=== PATIENT | male | born 1990 ===

== ENCOUNTER 2023-01-28 10:30 | Outpatient (REF) | payer OTHER, SELFPAY | END 2023-01-28 10:31 | disposition home or self-care (01) | LOC: HO.LAB 10:30 | PROVIDERS: Visit Provider Family Medicine | DX: Z13.89 Encounter for screening for other disorder (principal) ==

== ENCOUNTER 2023-04-09 10:50 | Outpatient (AMB) | payer OTHER, SELFPAY ==
[2023-04-09 10:58] VITALS: BP 122/68; PULSE 84; RESP 12; TEMP 37.1; O2SAT 99; BMI 31.3
--- NOTE | 2023-04-09 10:58 | MHC.PC.OV ---
Vital Signs 04/09/23 10:58 Height 5 ft 10 in Weight 218 lb 4 oz BMI 31.3 BP 122/68 Blood Pressure Location Lt brachial Position Sitting Respiration 12 Pulse 84 Pulse Source Pulse Oximeter Temp 98.7 F Temp Source Temporal Artery Scan Pulse Oximetry (%) 99 Oxygen Delivery Method Room Air Intake Visit Reasons: CPE with f/u labs and health maintenance Intake Note: Labs weren't done and will be getting done on Thursday. Patient states that hes had numkbness in his legs mostly the right one. Patient states that he also has bumps that have been coming up on his legs that feel hard. Bus Escort Required: No Accompanied by: Self / Same As Patient Allergies No Known Allergies Allergy (Verified 04/09/23 11:04) Tobacco use date assessed: 04/09/23 Dental Screening Dental Screen Date: 04/09/23 Did you have a dental visit in the last 12 months?: No Did you have a dental problem in the last 6 months where you did not have access to dental care?: No Was dental information given to patient?: Yes HPI CPE with f/u labs and health maintenance HPI Details 32 y/o male presents for a CPE with f/u labs and health maintenance. No recent labs to review. He reports working on his water in [employer] and metamucil has helped his abdominal discomfort. He reports significant heartburn daily. He has been using tums for relief. [facility] Medical History (Updated 04/09/23 @ 11:43 by Sihraz Felix) No pertinent past medical history Surgical History (Updated 04/09/23 @ 11:09 by Sarita Crystal MA) No pertinent past surgical history Family History Father Hypertension Brother Substance abuse Social History Household Members: Family Housing: House Are you a primary certified caregiver to a significant other at home: No Do you presently have visiting nurse or other home services: No 75 years or older and lives alone: No Alcohol intake: former Patient Tobacco Use Status: Former Tobacco user Years Smoked: every once in a while. 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 Cognitive needs: No Hearing needs: No Vision needs: No Review of Systems Const Denies chills, Denies fatigue, Denies fever(s), Denies headache(s) and Denies weakness Eyes Denies change in vision ENT Denies dizziness, Denies headache(s), Denies hearing loss, Denies nasal congestion, Denies sinus pain, Denies sinus pressure and Denies sore throat Card Denies chest pain, Denies lightheadedness, Denies dyspnea and Denies other (palpitations) Resp Denies cough, Denies dyspnea and Denies wheezing GI Denies abdominal pain, Denies melena, Denies hematochezia, Denies change in bowel habits, Denies dyspepsia and Denies nausea Denies hematuria and Denies dysuria Musc Denies abnormal gait, Denies myalgias, Denies arthralgias, Denies numbness and Denies tingling Skin/Breast Denies rash, Denies unusual bruising and Denies wounds Neuro Denies abnormal gait, Denies dizziness, Denies headache(s), Denies memory loss, Denies numbness, Denies Sensory deficit (Neuro), Denies tingling and Denies weakness Psych Denies anxiety, Denies depression and Denies memory loss Endo Denies cold intolerance, Denies fatigue, Denies heat intolerance, Denies polydipsia and Denies polyuria Sherif/Lymph Denies easy bleeding and Denies easy bruising Aller/Immun Denies wheezing Physical exam (Primary Care) Vital Signs: Last Vital Signs Temp 98.7 F 04/09/23 10:58 Pulse 84 04/09/23 10:58 Resp 12 04/09/23 10:58 BP 122/68 04/09/23 10:58 Pulse Ox 99 04/09/23 10:58 Oxygen Delivery Method Room Air 04/09/23 10:58 BMI result Body Mass Index 31.3 Tobacco/Smoking Status: Tobacco use Status Tobacco use date assessed 04/09/23 04/09/23 11:09 Patient Tobacco Use Status Former Tobacco user 04/09/23 11:09 Tobacco use type 04/09/23 11:09 e-Cigarette/Vaping Use Never Used 04/09/23 11:09 Const General: no acute distress, well developed, alert and awake Nutritional Appearance: well nourished Orientation/consciousness: patient oriented x3 HENMT Head: Yes normocephalic and Yes atraumatic Ears: hearing grossly normal bilaterally and TM's normal bilaterally General nose exam: Normal external nose present and Normal nares present Mouth: Normal oral and palatal mucosa present and moist mucous membranes Teeth and gingiva: dentition normal Throat: Yes posterior oropharynx normal Eyes General: appearance normal, both eyes and all related structures Pupils: Equal, round and reactive pupils present and Pupil accommodation reflex normal EOM: EOMs intact bilaterally Neck Neck: Yes normal visual inspection, Yes no lymphadenopathy and Yes trachea midline Thyroid: Thyroid normal Carotids: no bruits Lymphatic: no lymphadenopathy noted Chest Chest palpation & inspection: normal inspection of the chest Resp Effort & Inspection: normal respiratory effort Auscultation: clear to auscultation bilaterally Cardio Rate: regular rate Rhythm: regular rhythm Heart sounds: S1 normal heart sound present, S2 normal heart sound present, no gallops, no murmurs and no rubs Bruits: no abdominal aortic bruits and no carotid bruits GI Palpation (GI): No Abdominal aortic bruit present, Soft to palpation, nontender, No hepatosplenomegaly present and No Rebound tenderness present Auscultation: normal bowel sounds General: Yes no CVA tenderness Back/Spine/Pelvis Back: no CVA tenderness Cervical Spine: cervical ROM normal and No Cervical spine tenderness Thoracic/Lumbar Spine: thoraco-lumbar ROM normal, No pain with thoraco-lumbar ROM, No thoracic spinal tenderness and No lumbar spinal tenderness Skin Lesions: no lesions Rashes: no rashes Trauma: no lacerations or abrasions Wounds: no wounds Nails: normal Neuro General: patient oriented x3 Cranial nerves: Yes Equal, round and reactive pupils present Cognition (Neuro): normal cognition Gait exam (Neuro): Normal gait present Motor exam (neuro): 5/5 motor strength present throughout Sensory Exam: No Sensory deficit (Neuro) Deep tendon reflexes (DTR's): Right patellar reflex intensity grade: 2+ and Left patellar reflex intensity grade: 2+ Extrem General: Yes normal to inspection and No edema Psych Appearance: grossly normal Affect: normal affect Attitude: cooperative Thought process: Normal thought process present Assessment and Plan Assessment & Plan (1) Adult general medical exam: Code(s): Z00.00 - Encounter for general adult medical examination without abnormal findings (2) Abdominal pain: Code(s): R10.9 - Unspecified abdominal pain Plan: Improving with increased hydration and soluble fiber Continue this (3) GERD (gastroesophageal reflux disease): Code(s): K21.9 - Gastro-esophageal reflux disease without esophagitis Plan: GERD with symptoms every day Trial omeprazole He will let me know if this persists; would refer to GI Medications: New omeprazole 20 mg PO DAILY 30 days 30 caps 3RF Coding Level of Care Code Est Pt Level 3 (24934) Est Pt Prev Care 18-39y(24222) Diagnoses Adult general medical exam Z00.00 Abdominal pain R10.9 GERD (gastroesophageal reflux disease) K21.9
== END 2023-04-09 11:45 | disposition home or self-care (01) ==
PROVIDERS: Visit Provider Family Medicine
DX: Z00.00 Encounter for general adult medical examination without abnormal findings (principal); R10.9 Unspecified abdominal pain; K21.9 Gastro-esophageal reflux disease without esophagitis
CPT/HCPCS: 99395

== ENCOUNTER 2023-04-13 08:43 | Outpatient (REF) | payer OTHER, SELFPAY ==
[2023-04-13 11:47] LABS: Appearance Urine Clear; Color Urine Yellow; Glucose Urine UA Negative (Negative); Leukocyte Esterase Urine Trace (Negative); Nitrite Urine Negative (Negative); PH 5.5 (5.0-9.0); UMIC TRIGGER UA YES; Urine Blood Negative (Negative); Urine Ketones Negative (Negative); Urine Protein Negative (Neg-Trace)
[2023-04-13 12:02] LABS: Bacteria Urine None Seen (None Seen); Hyaline Casts Urine 0-2 /LPF (0-2); RBC Urine 0-2 /HPF (0-2); Squamous Epithelial Cell Urine 0-2 /HPF (0-2)
[2023-04-13 12:06] LABS: Alanine Aminotransferase 16 U/L (0-40); Albumin Level 4.3 g/dL (3.5-5.0); Alkaline Phosphatase 48 U/L (39-117); Anion Gap 10 (12-20); Aspartate Amino Transferase 16 U/L (5-37); Bilirubin Total 0.4 mg/dL (0.0-1.0); Blood Urea Nitrogen 15 mg/dL (9-16); Calcium 9.5 mg/dL (8.4-10.2); Carbon Dioxide 27 mmol/L (22-29); Chloride 107 mmol/L (96-108); Cholesterol 188 mg/dL; Estimated Glomerular Filt Rate > 60; Glucose Fasting 104 mg/dL (60-99); HDL Cholesterol 57 mg/dL; LDL Cholesterol Calculated 119 mg/dl; Potassium 4.3 mmol/L (3.3-5.1); Sodium 140 mmol/L (135-145); Triglycerides 63 mg/dL
[2023-04-13 12:11] LABS: Syphilis Screen Nonreactive (Nonreactive)
[2023-04-13 12:17] LABS: HBS Num1 1.48 mIU/mL (0-7.99); HBc Num1 0.12 S/CO (0.00-0.79); HBsAGNum1 0.34 S/CO (0.00-0.99); HIV AB/AG Nonreactive (Nonreactive); HIV Num 1 0.05 S/CO (0.00-0.99); Hepatitis B Core Antibody Nonreactive (Nonreactive); Hepatitis B Surface Antigen Negative (Negative); ~HepC Num1 0.07 S/CO (0.00-0.79); ~Hepatitis B Surface Antibody NONREACTIVE (Nonreactive); ~Hepatitis C Antibody Nonreactive (Nonreactive)
[2023-04-13 12:48] LABS: Creatinine Urine 150.57 mg/dL; Microalbum/Creatinine Ratio Ur 3.9 ug/mg cr
[2023-04-13 13:48] LABS: CT PCR NOT DETECTED (Not Detect.); NG PCR NOT DETECTED (Not Detect.)
== END 2023-04-13 08:44 | disposition home or self-care (01) ==
LOC: HO.WFDLDS 08:43
PROVIDERS: Visit Provider Family Medicine
DX: Z00.00 Encounter for general adult medical examination without abnormal findings (principal); Z11.4 Encounter for screening for human immunodeficiency virus [HIV]; I10 Essential (primary) hypertension; Z20.2 Contact with and (suspected) exposure to infections with a predominantly sexual mode of transmission
CPT/HCPCS: 0353U; 80053; 80061; 81001; 82043; 84443; 86704; 86706; 86780; 86803; 87340; 87389

== ENCOUNTER 2023-05-06 16:36 | Outpatient (AMB) | payer OTHER, SELFPAY ==
--- NOTE | 2023-05-06 14:08 | A.OFFPC_ITS ---
Intake Visit Reasons: f/u CPE-labs Intake Note: Patient is following up on lab results today. Allergies No Known Allergies Allergy (Verified 05/06/23 14:08) Tobacco use date assessed: 05/06/23 Dental Screening Dental Screen Date: 05/06/23 Did you have a dental visit in the last 12 months?: No Did you have a dental problem in the last 6 months where you did not have access to dental care?: No Was dental information given to patient?: No HPI f/u CPE-labs HPI Details 32 y/o male presents to f/u CPE-labs via telemedicine. Labs were drawn 04/13/23. Reviewed labs with pt. Triglycerides 63. TC 188. LDL 119. HDL 57. Elevated fasting glucose of 104. Pt reports family history of diabetes - his mother. [facility] Medical History (Updated 05/06/23 @ 17:24 by Shiraz Felix) No pertinent past medical history Surgical History (Updated 04/09/23 @ 11:09 by Sarita Crystal MA) No pertinent past surgical history Family History Father Hypertension Brother Substance abuse Social History Household Members: Family Housing: House Are you a primary hospice home care coordinator to a significant other at home: No Do you presently have visiting nurse or other home services: No 75 years or older and lives alone: No Alcohol intake: former Patient Tobacco Use Status: Former Tobacco user Years Smoked: every once in a while. 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 Cognitive needs: No Hearing needs: No Vision needs: No Review of Systems Const Denies chills, Denies fatigue, Denies fever(s), Denies headache(s) and Denies weakness ENT Denies dizziness and Denies headache(s) Card Denies dyspnea Resp Denies cough, Denies dyspnea, Denies wheezing and Denies other (shortness of breath) Musc Denies numbness and Denies tingling Neuro Denies dizziness, Denies headache(s), Denies numbness, Denies tingling and Denies weakness Psych Denies anxiety and Denies depression Endo Denies fatigue Aller/Immun Denies wheezing Physical exam (Primary Care) Tobacco/Smoking Status: Tobacco use Status Tobacco use date assessed 05/06/23 05/06/23 14:11 Patient Tobacco Use Status Former Tobacco user 05/06/23 14:11 Tobacco use type 04/09/23 11:42 e-Cigarette/Vaping Use Never Used 05/06/23 14:11 Telehealth Telehealth Minutes spent on Phone/Video with Pt.: 6 Assessment and Plan Assessment & Plan (1) Elevated fasting glucose: Code(s): R73.01 - Impaired fasting glucose Plan: Reviewed labs with patient and fasting blood sugar is mildly elevated. He has a strong family history of diabetes Encouraged a diet lower in sugars and starches He will get his blood redrawn fasting prior to his next visit and we will review this as well as check an A1c Orders: Orders Comprehensive Convoy. Panel Fast Today R73.01 - Impaired fasting glucose, Z00.00 - Encounter for general adult medical examination without abnormal findings Medications: Refilled omeprazole 20 mg PO DAILY 30 caps 3RF 30 days Coding Level of Care Code Tele Est Pt Level 2 (91478) Diagnoses Elevated fasting glucose R73.01
== END 2023-05-06 17:00 ==
PROVIDERS: PCP Family Medicine; Visit Provider Family Medicine
DX: R73.01 Impaired fasting glucose (principal)
CPT/HCPCS: 99212

== ENCOUNTER 2023-08-04 15:18 | Outpatient (AMB) | payer OTHER, SELFPAY ==
--- NOTE | 2023-08-04 15:28 | A.OFFPC_ITS ---
Vital Signs 08/04/23 15:30 Height 5 ft 10 in Weight 214 lb 2 oz BMI 30.7 BP 118/74 Blood Pressure Location Lt brachial Position Sitting Pulse 75 Pulse Source Pulse Oximeter Pulse Oximetry (%) 97 Oxygen Delivery Method Room Air Intake Visit Reasons: f/u elevated fasting glucose Intake Note: Patient is here following up on elevated fasting blood glucose. Allergies No Known Allergies Allergy (Verified 08/04/23 15:34) Tobacco use date assessed: 08/04/23 HPI f/u elevated fasting glucose HPI Details 32 y/o male presents to f/u elevated fas ting blood sugars. A1c today 08/04/23 is 5.6%. Pt does report increased thirst recently but denies any other symptoms. Pt reports bumps bilateral legs. He notes he has stopped using omeprazole about a month ago as he was worried about nursing home use of omeprazole. He does note that it has been controlling his heartburn and has started taking it again about 2 weeks ago. He reports abd. pain. [facility] Medical History No pertinent past medical history Surgical History No pertinent past surgical history Family History Father Hypertension Brother Substance abuse Social History Household Members: Family Housing: House Are you a primary career technology teacher to a significant other at home: No Do you presently have visiting nurse or other home services: No 75 years or older and lives alone: No Alcohol intake: former Patient Tobacco Use Status: Former Tobacco user Years Smoked: every once in a while. e-Cigarette/Vaping Use: Never Used service: No Current occupational status: employed Current occupation: [employer] Cognitive needs: No Hearing needs: No Vision needs: No Review of Systems Const Denies chills, Denies fatigue, Denies fever(s), Denies headache(s) and Denies weakness ENT Denies dizziness and Denies headache(s) Card Denies dyspnea Resp Denies cough, Denies dyspnea, Denies wheezing and Denies other (shortness of breath) GI Reports abdominal pain Musc Denies numbness and Denies tingling Neuro Denies dizziness, Denies headache(s), Denies numbness, Denies tingling and Denies weakness Psych Denies anxiety and Denies depression Endo Denies fatigue Aller/Immun Denies wheezing Physical exam (Primary Care) Vital Signs: Last Vital Signs Pulse 75 08/04/23 15:30 BP 118/74 08/04/23 15:30 Pulse Ox 97 08/04/23 15:30 Oxygen Delivery Method Room Air 08/04/23 15:30 BMI result Body Mass Index 30.7 Tobacco/Smoking Status: Tobacco use Status Tobacco use date assessed 08/04/23 08/04/23 15:35 Patient Tobacco Use Status Former Tobacco user 08/04/23 15:30 Tobacco use type 04/09/23 11:42 e-Cigarette/Vaping Use Never Used 08/04/23 15:30 Const General: well developed; No acute distress Nutritional Appearance: well nourished Orientation/consciousness: patient oriented x3 HENMT Head: Yes normocephalic and Yes atraumatic Eyes General: appearance normal, both eyes and all related structures Pupils: Equal, round and reactive pupils present EOM: EOMs intact bilaterally Resp Effort & Inspection: normal respiratory effort Neuro General: patient oriented x3 and gait normal Cranial nerves: Yes Equal, round and reactive pupils present Psych Affect: normal affect Office Procedures Flu Questionnaire Does the patient have a severe egg allergy?: Yes Does the patient have severe life threatening allergies?: Yes Does the patient have a fever or illness today?: Yes 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 Has the patient ever had any past reaction to a flu shot?: Yes Results AMB Hemoglobin A1c AMB Hemoglobin A1c 5.6 % Last Edit by Karlee Nice CMA on 08/04/23 15:52 Immunizations flu vacc [id number] 6mos up(PF) 60 mcg(15 mcgx4)/0.5 mL IM syringe Performing Provider: Bola Hernandez MD Performing Location: [facility] Documented (not given) by: Karlee Nice CMA on 08/04/23 15:39 Reason Not Given: Patient Refused Results Reviewed Results Reviewed: Laboratory Last Values Hgb A1c (Clinic) 5.6 % (4.0-6.0) 08/04/23 15:51 Assessment and Plan Assessment & Plan (1) Elevated fasting glucose: Code(s): R73.01 - Impaired fasting glucose Plan: A1c?5.6%.??Insulin?resistance Encouraged?diet?low?in?sugars?and?starches Encouraged?weight?control?and?exercise (2) GERD (gastroesophageal reflux disease): Code(s): K21.9 - Gastro-esophageal reflux disease without esophagitis Plan: Ongoing?GERD Refilled?omeprazole Referred?to?GI (3) Abdominal pain: Code(s): R10.9 - Unspecified abdominal pain Plan: As?above,?referred?to?GI (4) Ingrown hair: Code(s): L73.1 - Pseudofolliculitis barbae Plan: Folliculitis,?ingrown?hair?and?mild?abscess Start?Bactrim Patient?shaves?and?advised?him?to?try?clippers?instead?or?discontinue?shaving Can?also?use?Hibiclens Orders: Orders Influenza [id number] Immunization Today Z23 - Encounter for immunization AMB Hemoglobin A1c Today Z13.9 - Encounter for screening, unspecified Medications: New sulfamethoxazole-trimethoprim 800-160 mg (Bactrim DS) 1 tab PO Q12H 20 tabs 0RF 10 days Refilled omeprazole 20 mg PO DAILY 30 caps 3RF 30 days Coding Level of Care Code Est Pt Level 4 (68380) Diagnoses Elevated fasting glucose R73.01 GERD (gastroesophageal reflux disease) K21.9 Abdominal pain R10.9 Ingrown hair L73.1
[2023-08-04 15:30] VITALS: BP 118/74; PULSE 75; O2SAT 97; BMI 30.7
== END 2023-08-04 16:17 | disposition home or self-care (01) ==
PROVIDERS: PCP Family Medicine; Visit Provider Family Medicine
DX: R73.01 Impaired fasting glucose (principal); K21.9 Gastro-esophageal reflux disease without esophagitis; R10.9 Unspecified abdominal pain; L73.1 Pseudofolliculitis barbae; Z23 Encounter for immunization
CPT/HCPCS: 83036; 99214

== ENCOUNTER 2023-11-03 15:25 | Outpatient (AMB) | payer OTHER, SELFPAY ==
--- NOTE | 2023-11-03 15:45 | A.OFFPC_ITS ---
Vital Signs 11/03/23 15:49 Height 5 ft 10 in Weight 214 lb BMI 30.7 BP 121/80 Blood Pressure Location Lt brachial Position Sitting Pulse 77 Pulse Source Pulse Oximeter Pulse Oximetry (%) 97 Oxygen Delivery Method Room Air Intake Visit Reasons: f/u elevated fasting blood sugars. Intake Note: Patient is here to follow up on elevated fasting blood sugars, and he is requesting HPV testing today. Allergies No Known Allergies Allergy (Verified 11/03/23 15:47) Tobacco use date assessed: 11/03/23 HPI f/u elevated fasting blood sugars. HPI Details 32 y/o male presents to f/u elevated fas ting blood sugars. Last A1c 08/04/23 5.6%. A1c today 11/03/23 is 5.6%. Pt reports winifred has HPV. [facility] Medical History No pertinent past medical history Surgical History No pertinent past surgical history Family History Father Hypertension Brother Substance abuse Social History (Updated 11/03/23 @ 15:49 by Karlee Nice CMA) Household Members: Family Housing: House Are you a primary healthcare risk control consultant to a significant other at home: No Do you presently have visiting nurse or other home services: No 75 years or older and lives alone: No Alcohol intake: former Patient Tobacco Use Status: Former Tobacco user Years Smoked: every once in a while. 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 Cognitive needs: No Hearing needs: No Vision needs: No Review of Systems Const Denies chills, Denies fatigue, Denies fever(s), Denies headache(s) and Denies weakness ENT Denies dizziness and Denies headache(s) Card Denies dyspnea Resp Denies cough, Denies dyspnea, Denies wheezing and Denies other (shortness of breath) Musc Denies numbness and Denies tingling Neuro Denies dizziness, Denies headache(s), Denies numbness, Denies tingling and Denies weakness Psych Denies anxiety and Denies depression Endo Denies fatigue Aller/Immun Denies wheezing Physical exam (Primary Care) Vital Signs: Last Vital Signs Pulse 77 11/03/23 15:49 BP 121/80 11/03/23 15:49 Pulse Ox 97 11/03/23 15:49 Oxygen Delivery Method Room Air 11/03/23 15:49 BMI result Body Mass Index 30.7 Tobacco/Smoking Status: Tobacco use Status Tobacco use date assessed 11/03/23 11/03/23 15:57 Patient Tobacco Use Status Former Tobacco user 11/03/23 15:57 Tobacco use type 04/09/23 11:42 e-Cigarette/Vaping Use Never Used 11/03/23 15:57 Const General: well developed; No acute distress Nutritional Appearance: well nourished Orientation/consciousness: patient oriented x3 HENMT Head: Yes normocephalic and Yes atraumatic Eyes General: appearance normal, both eyes and all related structures Pupils: Equal, round and reactive pupils present EOM: EOMs intact bilaterally Resp Effort & Inspection: normal respiratory effort Neuro General: patient oriented x3 and gait normal Cranial nerves: Yes Equal, round and reactive pupils present Psych Affect: normal affect Results AMB Hemoglobin A1c AMB Hemoglobin A1c 5.6 % Last Edit by Karlee Nice CMA on 11/03/23 16:07 Results Reviewed Results Reviewed: Laboratory Last Values Hgb A1c (Clinic) 5.6 % (4.0-6.0) 11/03/23 16:06 Assessment and Plan Assessment & Plan (1) Elevated fasting glucose: Code(s): R73.01 - Impaired fasting glucose Plan: A1c?again?5.6%?which?is?top?normal?range Encouraged?diet?low?in?sugars?and?starches,?decrease?portion?sizes?and?work?at?w eight?loss.??Encouraged?exercise. Will?continue?to?follow (2) HPV exposure: Code(s): Z20.2 - Contact with and (suspected) exposure to infections with a predominantly sexual mode of transmission Plan: Fiancee?had?Pap?smear?and?tested?positive?for?HPV Discussed?HPV?transmission?and explained?to?patient?that?there?is?no?HPV?testing?for?males However,?if?positive?for?HPV?he?can?also?be?tested?for?other?STDs.??See?below (3) Screening for STD (sexually transmitted disease): Code(s): Z11.3 - Encounter for screening for infections with a predominantly sexual mode of transmission Plan: Patient?would?like?testing?for?STD/STI No?symptoms He?will?come?in?tomorrow?to?get?labs?acquired?and?we?can?follow- up?in?a?few?weeks. Will?call?patient?if?action?is?required?sooner. Orders: Orders CT NG by PCR Today Z11.3 - Encounter for screening for infections with a predominantly sexual mode of transmission AMB Hemoglobin A1c Today Z13.9 - Encounter for screening, unspecified HIV Ab/Ag Today Z11.3 - Encounter for screening for infections with a predominantly sexual mode of transmission Hepatitis B,C Profile Today Z11.3 - Encounter for screening for infections with a predominantly sexual mode of transmission Syphilis Screen Today Z11.3 - Encounter for screening for infections with a predominantly sexual mode of transmission Coding Level of Care Code Est Pt Level 3 (31883) Diagnoses Elevated fasting glucose R73.01 HPV exposure Z20.2 Screening for STD (sexually transmitted disease) Z11.3
[2023-11-03 15:49] VITALS: BP 121/80; PULSE 77; O2SAT 97; BMI 30.7
== END 2023-11-04 11:49 | disposition home or self-care (01) ==
PROVIDERS: PCP Family Medicine; Visit Provider Family Medicine
DX: R73.01 Impaired fasting glucose (principal); Z20.2 Contact with and (suspected) exposure to infections with a predominantly sexual mode of transmission; Z11.3 Encounter for screening for infections with a predominantly sexual mode of transmission
CPT/HCPCS: 83036; 99213

== ENCOUNTER 2023-11-04 08:48 | Outpatient (REF) | payer OTHER, SELFPAY ==
[2023-11-05 03:48] LABS: Syphilis Screen Nonreactive (Nonreactive)
[2023-11-05 04:06] LABS: HBS Num1 2.66 mIU/mL (0-7.99); HBc Num1 0.09 S/CO (0.00-0.79); HIV AB/AG Nonreactive (Nonreactive); HIV Num 1 0.05 S/CO (0.00-0.99); Hepatitis B Core Antibody Nonreactive (Nonreactive); Hepatitis B Surface Antigen Negative (Negative); ~HepC Num1 0.09 S/CO (0.00-0.79); ~Hepatitis B Surface Antibody NONREACTIVE (Nonreactive); ~Hepatitis C Antibody Nonreactive (Nonreactive)
== END 2023-11-04 08:49 | disposition home or self-care (01) ==
LOC: HO.WFDLDS 08:48
PROVIDERS: Visit Provider Family Medicine
DX: Z11.4 Encounter for screening for human immunodeficiency virus [HIV] (principal); Z20.2 Contact with and (suspected) exposure to infections with a predominantly sexual mode of transmission
CPT/HCPCS: 36415; 86704; 86706; 86780; 86803; 87340; 87389

== ENCOUNTER 2024-05-10 17:32 | Emergency (ER) | payer OTHER, SELFPAY ==
[2024-05-10 17:36] VITALS: BP 135/82; PULSE 82; RESP 18; TEMP 36.2; O2SAT 98; BMI 28.7
--- NOTE | 2024-05-10 17:37 | ED_ITS ---
HPI - General Adult General Chief complaint: General Medical Stated complaint: not feeling well/nauseous Time Seen by Provider: 05/11/24 05:45 Source: patient Mode of arrival: ambulatory Limitations: no limitations History of Present Illness ED Provider: Dr. Gualberto Borrero HPI narrative: 33-year-old male with a history of GERD who presents emergency department for evaluation of headache, nausea, vomiting, lightheadedness, dizziness and abdominal pain. Patient states that yesterday he was trimming the bushes for about an hour. When he finished he went inside and had a headache which she describes as a diffuse, throbbing sensation which was moderate in intensity. He felt lightheaded and dizzy if his he was going to pass out. He also states that he had epigastric pain. He has had similar epigastric pain in the past and attributes it to his acid reflux/heartburn. Patient states that he was prescribed Prilosec but he has only taken a few doses and he states that it is not been effective at controlling his heartburn. Patient was concerned about his heartburn symptoms so came to the emergency department for evaluation. Related Data Previous Rx's ?Medication ?Instructions ?Recorded psyllium husk 0.4 gram capsule 0.4 g PO DAILY PRN constipation 30 01/21/23 (Metamucil) days #30 caps omeprazole 20 mg capsule,delayed 20 mg PO DAILY 30 days #30 caps 08/04/23 release sulfamethoxazole 800 1 tab PO Q12H 10 days #20 tabs 08/04/23 mg-trimethoprim 160 mg tablet (Bactrim DS) aluminum hydrox-magnesium carb 254 10 ml PO QID PRN dyspepsia #355 mL 05/11/24 mg-237.5 mg/5 mL oral suspension (Gaviscon Extra Strength) Allergies Allergy/AdvReac Type Severity Reaction Status Date / Time No Known Allergies Allergy Verified 05/10/24 17:38 Review of Systems 2 Review of Systems: Yes all other systems are reviewed and are negative [facility] Past Medical History [facility] Narrative: Social history: He denies tobacco and alcohol use. He does smoke marijuana. Medical History No pertinent past medical history Surgical History No pertinent past surgical history Family History Family History Father Hypertension Brother Substance abuse Social History Social History (Updated 11/03/23 @ 15:49 by Karlee Nice CMA) Household Members: Family Housing: House Are you a primary lawn care technician to a significant other at home: No Do you presently have visiting nurse or other home services: No Alcohol intake: former Patient Tobacco Use Status: Former Tobacco user Years Smoked: every once in a while. e-Cigarette/Vaping Use: Never Used Substance Use Type: Marijuana Advance Directives: No Advance Directives Information Provided: No Do you have a plan to hurt others: No Plan service: No Current occupational status: employed Current occupation: [employer] Cognitive needs: No Hearing needs: No Vision needs: No Physical Exam ED Vital Signs: Vital Signs - 24 hr 05/10/24 17:36 05/10/24 22:51 05/11/24 02:55 Temperature 97.1 F 97.7 F 98.0 F Pulse Rate 82 72 72 Respiratory Rate 18 17 17 Blood Pressure 135/82 150/98 H 139/87 Pulse Oximetry 98 99 99 Oxygen Delivery Method Room Air Room Air Room Air 05/11/24 05:44 05/11/24 06:11 Temperature 97.1 F 97.1 F Pulse Rate 69 69 Respiratory Rate 17 17 Blood Pressure 136/86 136/86 Pulse Oximetry 98 98 Oxygen Delivery Method Room Air Room Air BMI result Body Mass Index 28.7 Vital signs were normal Exam: General: Awake, alert in no distress Head: Normocephalic, atraumatic EENT: PERRL, Lids normal, sclera normal, conjunctiva normal, nose normal , ears normal, throat without erythema or exudates Neck: Supple, no adenopathy Lung: breath sounds symmetric, no wheezing, rales or rhonchi Chest: symmetric movement, nontender Heart: regular rate and rhythm, normal S1, S2 no murmurs or rubs Abdomen: soft, moderate epigastric tenderness,, nondistended, normal bowel sounds Back: no vertebral tenderness, no CVAT Extremities: no deformities, moves all extremities symmetrically Neuro: Awake, alert, oriented, normal speech, cranial nerves intact, moves all extremities symmetrically Psych: Pleasant, cooperative Course Course Course Narrative: RME, this is a rapid medical exam performed by David Cr please refer to primary provider for complete H&P- 33-year-old male presents for evaluation of headache, nausea, sore throat, abdominal pain. Patient reports abdominal pain on and off for a few months but headache started about 30 minutes prior to arrival. Medical Decision Making Medical Decision Making [facility] Narrative: 33-year-old male with a history of GERD who presents emergency department for evaluation of headache, nausea, vomiting, lightheadedness, dizziness with symptoms starting yesterday after he was trimming his pushes for proximally 1 hour. Patient has also been complaining of increased epigastric and heartburn symptoms. Vital signs were normal. Physical examination did reveal epigastric tenderness otherwise was unremarkable. Differential diagnosis: ?Includes but is not limited to gastritis, peptic ulcer disease, gastric ulcer, anemia, electrolyte abnormality Following evaluation was ordered: CBC, CMP, lipase, urinalysis Course: My independent interpretation patient's laboratory evaluation is as follows: CBC was normal. Glucose was elevated 175. LFTs were normal. Lipase was normal. COVID-19 was negative. The patient's symptoms are most consistent with gastritis and I did discuss this with him. Patient was advised to take his Prilosec 20 mg once a day for 4-6 weeks and to follow up with his PCP. He was also given a prescription for extra-strength Gaviscon 4 times a day as needed for heartburn like pain. Patient does have an elevated glucose of 175 and I did add a hemoglobin A1c. I told him it is important to follow up with his PCP and check his hemoglobin A1c result. I did discuss diabetes versus prediabetes with the patient and the importance of follow-up evaluation. Please note that the patient requires a paper prescription for extra-strength Gaviscon since he was not sure which pharmacy he wanted to use. I did print up the prescription and signed it however the patient forgot to take the prescription with him. Admission/Observation Consideration of admission/observation: Escalation of care including admission/observation considered Lab Data [facility] Lab Attestation statement: I reviewed the patient's lab results. 05/10/24 17:53 05/10/24 17:53 Labs: Lab Results 05/10/24 05/11/24 Range/Units 17:53 02:59 WBC 8.2 (4.8-10.8) X10*3/uL RBC 5.05 (4.60-5.80) X10*6/uL Hgb 15.1 (14.0-18.0) g/dl Hct 43.4 (42.0-52.0) % MCV 85.9 (80.0-98.0) fL MCH 29.9 (27.0-33.0) pg MCHC 34.8 (31.0-36.0) g/dl RDW 13.7 (11.0-16.0) % Plt Count 222 (160-400) X10*3/uL MPV 9.1 L (9.4-12.4) fL Immature Gran % (Auto) 0.2 (0.0-0.4) % Neut % (Auto) 51.2 (45-73) % Lymph % (Auto) 38.7 (20-40) % [place] % (Auto) 7.1 (2-11) % Eos % (Auto) 2.4 (0-4) % Baso % (Auto) 0.4 (0-2) % Lymph # (Auto) 3.2 (1.2-4.9) X10*3/uL [place] # (Auto) 0.6 (0.1-1.2) X10*3/uL Eos # (Auto) 0.2 (0.0-0.4) X10*3/uL Baso # (Auto) 0.0 (0.0-0.2) X10*3/uL Abs Immat Gran (auto) 0.02 (0.00-0.03) X10*3/uL Absolute Neuts (auto) 4.2 (2.0-8.3) x10*3/uL Absolute Nucleated RBC 0.000 (0.0-0.012) X10*3/uL Nucleated RBC % (auto) 0.0 (0.0-0.2) /100WBC Sodium 139 (135-145) mmol/L Potassium 3.3 (3.3-5.1) mmol/L Chloride 104 (96-108) mmol/L Carbon Dioxide 25 (22-29) mmol/L Anion Gap 13 (12-20) BUN 17 H (9-16) mg/dL Creatinine 1.01 (0.5-1.4) mg/dL Estim Creat Clear Calc 116.7 Estimated GFR > 60 Random Glucose 175 H (60-115) mg/dL Calcium 10.0 (8.4-10.2) mg/dL Total Bilirubin 0.3 (0.0-1.0) mg/dL AST 17 (5-37) U/L ALT 16 (0-40) U/L Alkaline Phosphatase 52 (39-117) U/L Total Protein 7.2 (6.5-8.0) g/dL Albumin 4.5 (3.5-5.0) g/dL Lipase 31 (8-78) U/L Urine Color Yellow Urine Appearance Clear Urine pH 6.0 (5.0-9.0) Ur Specific [place] 1.020 (1.005-1.025) Urine Protein Negative (Neg-Trace) mg/dL Urine Glucose (UA) Negative (Negative) mg/dL Urine Ketones Trace (Negative) mg/dL Urine Blood Negative (Negative) Urine Nitrite Negative (Negative) Ur Leukocyte Esterase Small (1+) H (Negative) Urine RBC 0-2 (0-2) /HPF Urine WBC 11-20 H (0-5) /HPF Ur Squamous Epith Cells 3-5 (0-2) /HPF Urine Bacteria Trace (None Seen) Hyaline Casts 0-2 (0-2) /LPF COVID-19 ([facility]) Negative (Negative) COVID-19 Clin Com See Note Prescription Management I considered prescription management with: Other (Antacids) Discharge Plan Discharge Clinical Impression: Gastritis, Dizziness, Headache Patient Disposition: Home, Self-Care Instructions: Gastritis (ED) Additional Instructions: Your blood work was normal which is reassuring. Your stomach pain is consistent with too much acid in your stomach causing inflammation in his stomach (gastritis) Take take your omeprazole 20 mg pills, 1 pill once a day for 1 month. ?This medication shuts off your acid production and lets the inflammation in your stomach and esophagus heal. You have to take omeprazole for at least 4-6 weeks in order for your stomach to heal. Take extra-strength Gaviscon 10 mL (2 tsp) 4 times a day as needed for abdominal pain. Follow-up with your doctor in 2 days. Please return to the emergency department if your symptoms get worse or if you develop any symptoms that are concerning to you. Please see the work note Prescriptions: New Gaviscon Extra Strength 254-237.5 mg/5 mL suspension 10 ml PO QID PRN (Reason: dyspepsia) Qty: 355 0RF No Action psyllium husk [Metamucil] 0.4 gram capsule 0.4 g PO DAILY PRN (Reason: constipation) 30 Days Qty: 30 2RF sulfamethoxazole-trimethoprim [Bactrim DS] 800-160 mg tablet 1 tab PO Q12H 10 Days Qty: 20 0RF omeprazole 20 mg capsule,delayed release(DR/EC) 20 mg PO DAILY 30 Days Qty: 30 3RF Interventions: ED Discharge Assessment Last Done: 05/11/24 06:11 Discharge Date/Time: 05/11/24 06:13 Print Language: Bulgarian
[2024-05-10 18:02] LABS: MANUAL DIFF FLAG NO
[2024-05-10 18:03] LABS: Basophils Percent Auto 0.4 % (0-2); Eosinophils Absolute Auto 0.2 X10*3/uL (0.0-0.4); Eosinophils Percent Auto 2.4 % (0-4); Hematocrit 43.4 % (42.0-52.0); Hemoglobin 15.1 g/dl (14.0-18.0); Imm Gran Abs Auto 0.02 X10*3/uL (0.00-0.03); Imm Gran Pct Auto 0.2 % (0.0-0.4); Lymphocytes Absolute Auto 3.2 X10*3/uL (1.2-4.9); Lymphocytes Percent Auto 38.7 % (20-40); Mean Corpuscular HGB Conc 34.8 g/dl (31.0-36.0); Mean Corpuscular Hemoglobin 29.9 pg (27.0-33.0); Mean Corpuscular Volume 85.9 fL (80.0-98.0); Mean Platelet Volume 9.1 fL (9.4-12.4); Monocytes Absolute Auto 0.6 X10*3/uL (0.1-1.2); Monocytes Percent Auto 7.1 % (2-11); Neutrophils Absolute Auto 4.2 x10*3/uL (2.0-8.3); Neutrophils Percent Auto 51.2 % (45-73); Platelet Count 222 X10*3/uL (160-400); Red Blood Count 5.05 X10*6/uL (4.60-5.80); Red Cell Distribution Width 13.7 % (11.0-16.0); White Blood Count 8.2 X10*3/uL (4.8-10.8)
[2024-05-10 18:17] LABS: COVID-19 Test Negative (Negative); IDNOW Serial# 58CA691E
[2024-05-10 18:18] LABS: Alanine Aminotransferase 16 U/L (0-40); Albumin Level 4.5 g/dL (3.5-5.0); Alkaline Phosphatase 52 U/L (39-117); Anion Gap 13 (12-20); Aspartate Amino Transferase 17 U/L (5-37); Bilirubin Total 0.3 mg/dL (0.0-1.0); Blood Urea Nitrogen 17 mg/dL (9-16); Carbon Dioxide 25 mmol/L (22-29); Chloride 104 mmol/L (96-108); Creatinine Clr Calc Pharmacy 116.7; Estimated Glomerular Filt Rate > 60; Glucose Random 175 mg/dL (60-115); Lipase 31 U/L (8-78); Potassium 3.3 mmol/L (3.3-5.1); Sodium 139 mmol/L (135-145); Total Protein 7.2 g/dL (6.5-8.0)
[2024-05-10 22:51] VITALS: BP 150/98; PULSE 72; RESP 17; TEMP 36.5; O2SAT 99
[2024-05-11 02:55] VITALS: BP 139/87; PULSE 72; RESP 17; TEMP 36.7; O2SAT 99
[2024-05-11 03:10] LABS: Appearance Urine Clear; Color Urine Yellow; Glucose Urine UA Negative (Negative); Leukocyte Esterase Urine Small (1+) (Negative); Nitrite Urine Negative (Negative); UMIC TRIGGER UACC YES; Urine Blood Negative (Negative); Urine Ketones Trace mg/dL (Negative); Urine Protein Negative (Neg-Trace)
[2024-05-11 03:22] LABS: Bacteria Urine Trace (None Seen); Hyaline Casts Urine 0-2 /LPF (0-2); RBC Urine 0-2 /HPF (0-2); UACC Culture Trigger YES
[2024-05-11 05:44] VITALS: BP 136/86; PULSE 69; RESP 17; TEMP 36.2; O2SAT 98
[2024-05-11 06:11] VITALS: BP 136/86; PULSE 69; RESP 17; TEMP 36.2; O2SAT 98
[2024-05-11 09:34] LABS: Estimated Average Glucose 114 mg/dL; Hemoglobin A1C 148.9013 umol/L; Hemoglobin A1c % 5.6 % (<6.0)
== END 2024-05-11 06:13 | disposition home or self-care (01) ==
PROVIDERS: Physician Assistant; Emergency Provider Emergency Medicine Emergency Medical Services; PCP Family Medicine
DX: K29.70 Gastritis, unspecified, without bleeding (principal); R42 Dizziness and giddiness; R51.9 Headache, unspecified; R53.83 Other fatigue; R79.89 Other specified abnormal findings of blood chemistry; Z79.899 Other long term (current) drug therapy; Z11.52 Encounter for screening for COVID-19
CPT/HCPCS: 80053; 81001; 83036; 83690; 85025; 87086; 87635; 99283; 99284

== ENCOUNTER 2024-07-18 10:59 | Outpatient (AMB) | payer OTHER, SELFPAY ==
--- NOTE | 2024-07-18 12:00 | MHC.PC.OV ---
Vital Signs 07/18/24 12:04 Height 5 ft 10 in Weight 216 lb BMI 31.0 BP 137/77 Blood Pressure Location Rt brachial Position Sitting Respiration 14 Pulse 79 Pulse Source Pulse Oximeter Temp 99.0 F Temp Source Temporal Artery Scan Pulse Oximetry (%) 99 Oxygen Delivery Method Room Air Intake Visit Reasons: Nausea, fatigue Intake Note: pt feels a lump in his throat and is having genital itching and bump [id number] Allergies No Known Allergies Allergy (Verified 07/18/24 12:01) Tobacco use date assessed: 11/03/23 Dental Screening Dental Screen Date: 05/06/23 HPI Nausea, fatigue HPI Details 33 y/o male presents today with complaints of a lump in his throat. [facility] Medical History No pertinent past medical history Surgical History No pertinent past surgical history Family History Father Hypertension Brother Substance abuse Social History (Updated 11/03/23 @ 15:49 by Karlee Nice CMA) Household Members: Family Housing: House Are you a primary intensive care specialist to a significant other at home: No Do you presently have visiting nurse or other home services: No 75 years or older and lives alone: No Alcohol intake: former Patient Tobacco Use Status: Former Tobacco user Years Smoked: every once in a while. 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 Cognitive needs: No Hearing needs: No Vision needs: No Review of Systems Const Denies chills, Denies fatigue, Denies fever(s), Denies headache(s) and Denies weakness ENT Denies dizziness and Denies headache(s) Card Denies dyspnea Resp Denies cough, Denies dyspnea, Denies wheezing and Denies other (shortness of breath) Musc Denies numbness and Denies tingling Neuro Denies dizziness, Denies headache(s), Denies numbness, Denies tingling and Denies weakness Psych Denies anxiety and Denies depression Endo Denies fatigue Aller/Immun Denies wheezing Physical exam (Primary Care) Vital Signs: Last Vital Signs Temp 99.0 F 07/18/24 12:04 Pulse 79 07/18/24 12:04 Resp 14 07/18/24 12:04 BP 137/77 07/18/24 12:04 Pulse Ox 99 07/18/24 12:04 Oxygen Delivery Method Room Air 07/18/24 12:04 BMI result Body Mass Index 31.0 Tobacco/Smoking Status: Tobacco use Status Tobacco use date assessed 11/03/23 07/18/24 12:05 Patient Tobacco Use Status Former Tobacco user 07/18/24 12:05 Tobacco use type 04/09/23 11:42 e-Cigarette/Vaping Use Never Used 07/18/24 12:05 Const General: well developed; No acute distress Nutritional Appearance: well nourished Orientation/consciousness: patient oriented x3 HENMT Head: Yes normocephalic and Yes atraumatic Eyes General: appearance normal, both eyes and all related structures Pupils: Equal, round and reactive pupils present EOM: EOMs intact bilaterally Resp Effort & Inspection: normal respiratory effort Neuro General: patient oriented x3 and gait normal Cranial nerves: Yes Equal, round and reactive pupils present Psych Affect: normal affect Coding Level of Care Code Est Pt Level 3 (61038) Diagnoses Lump in throat R22.1 Assessment & Plan Assessment & Plan (1) Lump in throat: Code(s): R22.1 - Localized swelling, mass and lump, neck Category: Medical Plan: Likely mildly?reactive?lymph?node?on?the?right Patient?notes?that?this?has?gotten?larger?and?smaller?and?that?he?had?a?recent?viral?illness. Mildly?tender?when?it?is?enlarged Reassured?patient?and?he?will?keep?an?eye?on?this?to?ensure?that?it?resolves.??Will?also?check?CBC He?will?let?me?know?if?not?resolving?and?would?check?ultrasound Orders: Orders TSH reflex Free T4 Today R22.1 - Localized swelling, mass and lump, neck, Z00.00 - Encounter for general adult medical examination without abnormal findings Complete Blood Count Auto Diff Today R22.1 - Localized swelling, mass and lump, neck, Z00.00 - Encounter for general adult medical examination without abnormal findings Comprehensive Met. Panel Today R22.1 - Localized swelling, mass and lump, neck
[2024-07-18 12:04] VITALS: BP 137/77; PULSE 79; RESP 14; TEMP 37.2; O2SAT 99; BMI 31.0
== END 2024-07-18 12:19 | disposition home or self-care (01) ==
PROVIDERS: PCP Family Medicine; Visit Provider Family Medicine
DX: R22.1 Localized swelling, mass and lump, neck (principal)

== ENCOUNTER → 2024-07-18 10:59 | Outpatient (BNVA) | payer OTHER, SELFPAY | PROVIDERS: PCP Family Medicine; Visit Provider Family Medicine ==

== ENCOUNTER 2024-07-18 13:35 | Outpatient (REF) | payer OTHER, SELFPAY | END 2024-07-18 13:36 | disposition home or self-care (01) | LOC: HO.WFDLDS 13:35 | PROVIDERS: Visit Provider Family Medicine | DX: Z13.89 Encounter for screening for other disorder (principal) | CPT/HCPCS: 36415 ==

== ENCOUNTER 2024-07-20 07:39 | Outpatient (REF) | payer OTHER, SELFPAY ==
[2024-07-20 11:31] LABS: MANUAL DIFF FLAG NO
[2024-07-20 11:32] LABS: Basophils Percent Auto 0.4 % (0-2); Eosinophils Absolute Auto 0.2 X10*3/uL (0.0-0.4); Eosinophils Percent Auto 3.5 % (0-4); Hematocrit 44.6 % (42.0-52.0); Hemoglobin 14.8 g/dl (14.0-18.0); Imm Gran Abs Auto 0.01 X10*3/uL (0.00-0.03); Imm Gran Pct Auto 0.2 % (0.0-0.4); Lymphocytes Absolute Auto 2.4 X10*3/uL (1.2-4.9); Lymphocytes Percent Auto 45.9 % (20-40); Mean Corpuscular HGB Conc 33.2 g/dl (31.0-36.0); Mean Corpuscular Hemoglobin 29.1 pg (27.0-33.0); Mean Corpuscular Volume 87.6 fL (80.0-98.0); Mean Platelet Volume 10.2 fL (9.4-12.4); Monocytes Absolute Auto 0.5 X10*3/uL (0.1-1.2); Monocytes Percent Auto 9.2 % (2-11); Neutrophils Absolute Auto 2.1 x10*3/uL (2.0-8.3); Neutrophils Percent Auto 40.8 % (45-73); Platelet Count 229 X10*3/uL (160-400); Red Blood Count 5.09 X10*6/uL (4.60-5.80); White Blood Count 5.2 X10*3/uL (4.8-10.8)
[2024-07-20 12:26] LABS: Alanine Aminotransferase 21 U/L (0-40); Albumin Level 4.3 g/dL (3.5-5.0); Alkaline Phosphatase 116 U/L (39-117); Anion Gap 14 (12-20); Aspartate Amino Transferase 29 U/L (5-37); Bilirubin Total 0.4 mg/dL (0.0-1.0); Blood Urea Nitrogen 17 mg/dL (9-16); Calcium 9.4 mg/dL (8.4-10.2); Carbon Dioxide 23 mmol/L (22-29); Chloride 107 mmol/L (96-108); Estimated Glomerular Filt Rate > 60; Glucose Random 123 mg/dL (60-115); Potassium 4.4 mmol/L (3.3-5.1); Sodium 140 mmol/L (135-145); Total Protein 7.2 g/dL (6.5-8.0)
[2024-07-20 13:00] LABS: TSH reflex Free T4 1.34 uIU/mL (0.32-4.0)
== END 2024-07-20 07:40 | disposition home or self-care (01) ==
LOC: HO.WFDLDS 07:39
PROVIDERS: Visit Provider Family Medicine
DX: Z00.00 Encounter for general adult medical examination without abnormal findings (principal); R22.1 Localized swelling, mass and lump, neck
CPT/HCPCS: 36415; 80053; 84443; 85025

== ENCOUNTER 2024-09-26 14:38 | Outpatient (AMB) | payer OTHER, SELFPAY ==
--- NOTE | 2024-09-26 12:28 | MHC.PC.OV ---
Intake Visit Reasons: f/u labs via telemedicine jono 08/09 Intake Note: lab review Allergies No Known Allergies Allergy (Verified 09/26/24 12:28) Tobacco use date assessed: 11/03/23 Dental Screening Dental Screen Date: 05/06/23 HPI f/u labs via telemedicine jono 08/09 HPI Details 33 y/o male presents to f/u labs via telemedicine. Labs drawn 07/20/24. Reviewed labs with pt. Following?up?on?lump?on?his?throat?which?is?likely?a?reactive?lymph?node. Elevated random glucose of 123. HPI Comments History of Present Illness Details Documentation assistance for Bola Hernandez MD, was provided by Shiraz Felix,? Electrician'S Assistant on 09/26/2024 at 5:10 PM EST. I, Dr. Hernandez, have read, observed, and verified documentation. [facility] Medical History No pertinent past medical history Surgical History No pertinent past surgical history Family History Father Hypertension Brother Substance abuse Social History (Updated 11/03/23 @ 15:49 by Karlee Nice CMA) Household Members: Family Housing: House Are you a primary director of health care marketing to a significant other at home: No Do you presently have visiting nurse or other home services: No 75 years or older and lives alone: No Alcohol intake: former Patient Tobacco Use Status: Former Tobacco user Years Smoked: every once in a while. 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 Cognitive needs: No Hearing needs: No Vision needs: No Review of Systems Const Denies chills, Denies fatigue, Denies fever(s), Denies headache(s) and Denies weakness ENT Denies dizziness and Denies headache(s) Card Denies dyspnea Resp Denies cough, Denies dyspnea, Denies wheezing and Denies other (shortness of breath) Musc Denies numbness and Denies tingling Neuro Denies dizziness, Denies headache(s), Denies numbness, Denies tingling and Denies weakness Psych Denies anxiety and Denies depression Endo Denies fatigue Aller/Immun Denies wheezing Physical exam (Primary Care) Tobacco/Smoking Status: Tobacco use Status Tobacco use date assessed 11/03/23 09/26/24 12:30 Patient Tobacco Use Status Former Tobacco user 09/26/24 12:30 Tobacco use type 04/09/23 11:42 e-Cigarette/Vaping Use Never Used 09/26/24 12:30 Telehealth Telehealth Telehealth Platform: Telephone Location of provider rendering services: practice address Location of patient: address on file Patient Identification confirmed using: Name, : Yes Telehealth method: voice only Patient verbally consented to treatment: Yes Patient verbally consented to billing insurance company: Yes Patient informed of any privacy concerns related to visit: Yes Minutes spent on Phone/Video with Pt.: 7 Coding Level of Care Code Tele Est Pt Level 2 (65407) Diagnoses Lump in throat R22.1 Elevated fasting glucose R73.01 Dysuria R30.0 Assessment & Plan Assessment & Plan (1) Lump in throat: Code(s): R22.1 - Localized swelling, mass and lump, neck Category: Medical Plan: This?has?gotten?smaller.??Was?initially?tender?as?well?but?no?longer Appears?to?be?resolving CBC?was?negative Thyroid?hormone?is?negative Will?examine?at?next?visit Continue?warm?saltwater?gargles?and?warm?compresses (2) Elevated fasting glucose: Code(s): R73.01 - Impaired fasting glucose Category: Medical Plan: Fasting?blood?sugar?remains?elevated.??We?have?been?following?this.?? Will?have?him?get?blood?work?drawn?and?we?can?discuss?at?his?next,?upcoming?visit (3) Dysuria: Code(s): R30.0 - Dysuria Category: Medical Plan: At?end?of?visit,?patient?notes?that?he?has?some?burning?with?urination?as?well?as?some?groin?pain Denies?significant?rash Patient?is?sexually?active?in?using?condoms?with?partner?of?2?months Will?have?him?come?in?for?exam?and?he?can?get?urine?studies?and?blood?work?done?prior?to?the?visit Orders: Orders Hemoglobin A1c Today R73.01 - Impaired fasting glucose Urine Culture Today R30.0 - Dysuria UA and rflx microscopic Today R30.0 - Dysuria, Z00.00 - Encounter for general adult medical examination without abnormal findings CT NG by PCR Today R30.0 - Dysuria, Z11.3 - Encounter for screening for infections with a predominantly sexual mode of transmission Medications: Refilled omeprazole 20 mg PO DAILY 30 days 30 caps 3RF
== END 2024-09-26 17:05 | disposition home or self-care (01) ==
LOC: HO.HMCFM 14:38
PROVIDERS: PCP Family Medicine; Visit Provider Family Medicine
DX: R22.1 Localized swelling, mass and lump, neck (principal); R73.01 Impaired fasting glucose; R30.0 Dysuria

== ENCOUNTER → 2024-09-26 14:38 | Outpatient (BNVA) | payer OTHER, SELFPAY | PROVIDERS: PCP Family Medicine; Visit Provider Family Medicine ==

== ENCOUNTER 2024-09-27 13:14 | Outpatient (REF) | payer OTHER, SELFPAY ==
[2024-09-27 14:35] LABS: Estimated Average Glucose 117 mg/dL; Hemoglobin A1C 148.7673 umol/L; Hemoglobin A1c % 5.7 % (<6.0); Total Hemoglobin (HGBA1C) 3860.9251 umol/L
[2024-09-27 18:18] LABS: Appearance Urine Clear; Color Urine Yellow; Glucose Urine UA Negative (Negative); Leukocyte Esterase Urine Negative (Negative); Nitrite Urine Negative (Negative); PH 5.5 (5.0-9.0); Specific Gravity - Urine >= 1.030 (1.005-1.025); Urine Blood Negative (Negative); Urine Ketones Negative (Negative); Urine Protein Negative (Neg-Trace)
== END 2024-09-27 13:15 | disposition home or self-care (01) ==
LOC: HO.WFDLDS 13:14
PROVIDERS: Visit Provider Family Medicine
DX: Z00.00 Encounter for general adult medical examination without abnormal findings (principal); R73.01 Impaired fasting glucose; R30.0 Dysuria
CPT/HCPCS: 36415; 81003; 83036; 87086

== ENCOUNTER 2024-10-11 13:51 | Outpatient (AMB) | payer OTHER, SELFPAY ==
--- NOTE | 2024-10-11 13:55 | A.OFFPC_ITS ---
Vital Signs 10/11/24 13:58 Height 5 ft 10 in Weight 219 lb 6 oz BMI 31.5 BP 132/71 Blood Pressure Location Rt brachial Position Sitting Respiration 12 Pulse 82 Pulse Source Pulse Oximeter Temp 97.7 F Temp Source Skin Pulse Oximetry (%) 99 Oxygen Delivery Method Room Air Intake Visit Reasons: f/u labs, urine studies Intake Note: Follow up on labs [place] Planning Manager Required: No Allergies No Known Allergies Allergy (Verified 10/11/24 13:56) Tobacco use date assessed: 11/03/23 Dental Screening Dental Screen Date: 05/06/23 HPI f/u labs, urine studies HPI Details 33 y/o male presents to f/u dysuria/groi n pain. Labs ordered. Also f/u on labs. Labs drawn 09/27/24. A1c 5.7%. Urine study looked fine aside though it did look concentrated. HPI Comments History of Present Illness Details Documentation assistance for Bola Hernandez MD, was provided by Shiraz Felix, Bus Starter on 10/11/2024 at 2:54 PM EST. I, Dr. Hernandez, have read, observed, and verified documentation. [facility] Medical History No pertinent past medical history Surgical History No pertinent past surgical history Family History Father Hypertension Brother Substance abuse Social History (Updated 11/03/23 @ 15:49 by Karlee Nice CMA) Household Members: Family Housing: House Are you a primary medicare specialist to a significant other at home: No Do you presently have visiting nurse or other home services: No 75 years or older and lives alone: No Alcohol intake: former Patient Tobacco Use Status: Former Tobacco user Years Smoked: every once in a while. 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 59269 - PHQ-9 Billing: Patient declined-do not bill Source: Developed by Drs. Babatunde Sky, Trice Mendoza, Daniel Betts and colleagues, with an educational kayley from [employer]. Review of Systems Const Denies chills, Denies fatigue, Denies fever(s), Denies headache(s) and Denies weakness ENT Denies dizziness and Denies headache(s) Card Denies dyspnea Resp Denies cough, Denies dyspnea, Denies wheezing and Denies other (shortness of breath) Musc Denies numbness and Denies tingling Neuro Denies dizziness, Denies headache(s), Denies numbness, Denies tingling and Denies weakness Psych Denies anxiety and Denies depression Endo Denies fatigue Aller/Immun Denies wheezing Physical exam (Primary Care) Vital Signs: Last Vital Signs Temp 97.7 F 10/11/24 13:58 Pulse 82 10/11/24 13:58 Resp 12 10/11/24 13:58 BP 132/71 10/11/24 13:58 Pulse Ox 99 10/11/24 13:58 Oxygen Delivery Method Room Air 10/11/24 13:58 BMI result Body Mass Index 31.5 Tobacco/Smoking Status: Tobacco use Status Tobacco use date assessed 11/03/23 10/11/24 14:00 Patient Tobacco Use Status Former Tobacco user 10/11/24 14:00 Tobacco use type 04/09/23 11:42 e-Cigarette/Vaping Use Never Used 10/11/24 14:00 Const General: well developed; No acute distress Nutritional Appearance: well nourished Orientation/consciousness: patient oriented x3 [facility] Head: Yes normocephalic and Yes atraumatic Eyes General: appearance normal, both eyes and all related structures Pupils: Equal, round and reactive pupils present EOM: EOMs intact bilaterally Resp Effort & Inspection: normal respiratory effort Neuro General: patient oriented x3 and gait normal Cranial nerves: Yes Equal, round and reactive pupils present Psych Affect: normal affect Coding Level of Care Code Est Pt Level 3 (59717) Diagnoses Dysuria R30.0 Pre-diabetes R73.03 Assessment & Plan Assessment & Plan (1) Dysuria: Code(s): R30.0 - Dysuria Category: Medical Plan: Urine?is?maximally?concentrated?but?otherwise?normal. Encouraged?increased?hydration Will?know?if?he?continues?having?problems (2) Pre-diabetes: Code(s): R73.03 - Prediabetes Category: Medical Plan: A1c?5.7%?now?which?is?in?pre?diabetes?range Encouraged?a?diet?lower?in?sugars?and?starches Encouraged?exercise?and?weight?loss Will?monitor
[2024-10-11 13:58] VITALS: BP 132/71; PULSE 82; RESP 12; TEMP 36.5; O2SAT 99; BMI 31.5
== END 2024-10-11 15:02 | disposition home or self-care (01) ==
PROVIDERS: PCP Family Medicine; Visit Provider Family Medicine
DX: R30.0 Dysuria (principal); R73.03 Prediabetes

== ENCOUNTER → 2024-10-11 13:51 | Outpatient (BNVA) | payer OTHER, SELFPAY | PROVIDERS: PCP Family Medicine; Visit Provider Family Medicine ==